=== PATIENT | male | born 1985 | race Hispanic/Latino ===

== ENCOUNTER 2021-05-01 10:01 | Emergency (ER) | payer OTHER, SELFPAY ==
--- NOTE | ~2021-05-01 | XR_ITS ---
EXAMINATION: XR chest 2V DATE: 05/01/2021 10:18 INDICATION: Left sided chest pain and chest tightness. TECHNIQUE: PA and lateral views of the chest were obtained. COMPARISON: Chest radiograph dated 08/14/2018 FINDINGS: The lungs remain clear with no focal airspace opacities, pulmonary edema, pleural effusion or pneumot horax. The cardiomediastinal silhouette is normal. Visualized bones and soft tissues are unremarkable . IMPRESSION: 1. No acute cardiopulmonary disease. Reviewed, dictated and finalized at location A.
[2021-05-01 10:07] VITALS: BP 167/85; PULSE 118; RESP 24; TEMP 37.1; O2SAT 100
--- NOTE | 2021-05-01 10:10 | ECG_ITS ---
Measurements Intervals [place] Rate: 101 P: 56 MT: 167 QRS: 8 QRSD: 94 T: -17 QT: 346 QTc: 448 Interpretive Statements SINUS TACHYCARDIA VENTRICULAR PREMATURE COMPLEX NONSPECIFIC T-WAVE ABNORMALITY- ANTEROLAT/INF LEADS BORDERLINE ECG Electronically Signed On 05-01-2021 17:11:57 CDT by Vikas Andrew D.O.
--- NOTE | 2021-05-01 10:21 | ED.CHESTPAIN ---
HPI - Chest Pain General Chief Complaint: Chest Pain Stated Complaint: chest pain Time Seen by Provider: 05/01/21 10:10 Source: patient Mode of arrival: ambulatory Limitations: no limitations History of Present Illness HPI narrative: This is a 25 year old male that presents to the ER for intermittent chest discomfort noted over the last week. Reports he feels like he is having palpitations. Does report increased stress at work and that he drinks a lot of caffeine. Denies any chest discomfort currently. Denies fever, cough, shortness of breath, or lower extremity edema. Related Data Home Medications Medication Instructions Recorded Confirmed No Home Medications 05/01/21 05/01/21 Allergies Allergy/AdvReac Type Severity Reaction Status Date / Time No Known Allergies Allergy Verified 05/01/21 10:10 Review of Systems Review of Systems: CONSTITUTIONAL: Denies fever CARDIOVASCULAR: Reports chest pain, palpitations. Denies edema. RESPIRATORY: Denies dyspnea. All systems reviewed & are unremarkable except as noted in HPI and below PMFSH Past Medical History Medical History (Updated 05/01/21 @ 13:29 by Gladys Grant PA-C) No active medical problems Social History Social History (Updated 05/01/21 @ 13:28 by Gladys Grant PA-C) Substance use: never Exam Narrative: GENERAL: Well-appearing, well-nourished, and in no acute distress. HEAD: Normocephalic, atraumatic. EYES: EOMI. ENT: Nares clear, no rhinorrhea or epistaxis. Mucous membranes moist. Oropharynx without tonsillar hypertrophy exudate or other lesions. NECK: Supple. No adenopathy or masses. No carotid bruits or JVD CHEST: Clear to auscultation. No respiratory distress. No wheezes rales or rhonchi HEART: Regular rate and rhythm. No murmur heard. Normal peripheral pulses. EXTREMITIES: Normal range of motion. No edema. SKIN: Warm, dry, no rash. NEURO: No focal deficits. Alert and oriented x3. PSYCH: Normal mood and affect Course Vital Signs Vital signs: Vital Signs Temperature 98.7 F 05/01/21 10:07 Pulse Rate 118 H 05/01/21 10:07 Respiratory Rate 24 H 05/01/21 10:07 Blood Pressure 167/85 H 05/01/21 10:07 Pulse Oximetry 100 05/01/21 10:07 Temperature 98.7 F 05/01/21 10:07 Pulse Rate 103 H 05/01/21 12:54 Respiratory Rate 20 05/01/21 12:54 Blood Pressure 136/88 05/01/21 12:54 Pulse Oximetry 99 05/01/21 12:54 MDM - Chest Pain MDM Narrative Medical decision making narrative: Patient presents to the ER for chest discomfort and palpitations over the last week. He is having frequent PVCs noted on registered nurse cardiac telemetry. Does report increased stress at work and a lot of caffeine intake. Denies any current chest discomfort. His vitals are stable. CBC and metabolic panel without concerning findings. Thyroid function is normal. BNP is normal. Chest x-ray without acute cardiopulmonary abnormality. No concerning changes on EKG. Spoke with Dr. Lemus about patient and work-up. Patient will be placed on a Holter monitor and is to follow-up in clinic. He is stable and felt appropriate for further outpatient evaluation. He was given warnings to return to the ER Lab Data Attestation: I reviewed the patient's lab results. Result diagrams: 05/01/21 10:24 05/01/21 10:24 Labs: Lab Results 05/01/21 05/01/21 05/01/21 Range/Units 10:23 10:23 10:24 WBC 6.1 (4.5-10.0) K/mm3 RBC 4.90 (4.6-6.20) M/mm3 Hgb 15.7 (14.0-18.0) g/dL Hct 44.6 (42.0-52.0) % MCV 91.0 (80-100) fl MCH 32.0 (26-34) pg MCHC 35.2 (32-36) g/dl RDW 11.7 (11.5-14.5) % Plt Count 208 (150-375) k/mm3 MPV 9.7 (7.4-10.4) fl Immature Gran % (Auto) 0.3 (0-0.5) % Neut % (Auto) 44.6 L (45.5-73.1) % Lymph % (Auto) 46.7 H (18.3-44.2) % [place] % (Auto) 6.5 (2.6-8.5) % Eos % (Auto) 1.6 (0-4.4) % Baso % (Auto) 0.3 (0.2-1.2) % Lymph # (Auto) 2.87 (0.9-3.2) K/mm
[2021-05-01] MEDS: ASPIRIN 81 MG CHEWABLE TABLET 324 MG PO (10:30)
[2021-05-01 10:31] VITALS: BP 142/87; PULSE 100; PULSE 105; RESP 23; O2SAT 99
[2021-05-01 10:31] LABS: Basophils Percent Auto 0.3 % (0.2-1.2); Eosinophils Absolute Auto 0.1 K/mm3 (0-0.3); Eosinophils Percent Auto 1.6 % (0-4.4); Hematocrit 44.6 % (42.0-52.0); Hemoglobin 15.7 g/dL (14.0-18.0); Immature Granulocyte Absolute 0.02 K/mm3 (0.00-0.031); Immature Granulocyte Percent A 0.3 % (0-0.5); Lymphocytes Absolute Auto 2.87 K/mm3 (0.9-3.2); Lymphocytes Percent Auto 46.7 % (18.3-44.2); Mean Corpuscular HGB Conc 35.2 g/dl (32-36); Mean Platelet Volume 9.7 fl (7.4-10.4); Monocytes Absolute Auto 0.4 K/mm3 (0.1-0.6); Monocytes Percent Auto 6.5 % (2.6-8.5); Neutrophils Absolute Auto 2.7 K/mm3 (1.3-6.7); Neutrophils Percent Auto 44.6 % (45.5-73.1); Platelet Count Result 208 k/mm3 (150-375); Red Cell Distribution Width 11.7 % (11.5-14.5); White Blood Count 6.1 K/mm3 (4.5-10.0)
[2021-05-01 10:40] LABS: Anion Gap 13 mmol/L (8-16); Blood Urea Nitrogen 13 mg/dL (9-20); Calcium 9.5 mg/dL (8.4-10.2); Carbon Dioxide 23 mmol/L (22-30); Chloride 102 mmol/L (98-107); Estimated CRCL calculation 81 ml/min; Estimated Glomerular Filt Rate > 60; Glucose 111 mg/dL (65-110); INR 0.9; Potassium 3.6 mmol/L (3.4-5.0); Prothrombin Time 11.8 Seconds (11.1-14.7); Sodium 138 mmol/L (137-145)
[2021-05-01 10:41] LABS: Partial Thromboplastin Time 25.8 SECONDS (22.3-36.8)
[2021-05-01 10:51] LABS: Troponin I < 0.012 ng/mL (0.000-0.034)
[2021-05-01 10:57] LABS: Magnesium 2.1 mg/dL (1.6-2.3)
[2021-05-01 11:30] VITALS: BP 155/95; PULSE 88; RESP 21; O2SAT 100
[2021-05-01 12:52] LABS: NT Pro B Type Natriuretic Pept 20 pg/mL (5-100)
[2021-05-01 12:54] VITALS: BP 136/88; PULSE 103; RESP 20; O2SAT 99
[2021-05-01 14:15] LABS: Troponin I < 0.012 ng/mL (0.000-0.034)
[2021-05-01 14:24] VITALS: BP 127/83; PULSE 99; RESP 18; O2SAT 97
--- NOTE | 2021-05-04 20:37 | WPDHOLTEREM ---
Holter/Event Monitor Holter/Event Monitor Date of procedure: 05/04/21 Holter/Event Procedure: 48 Hr Holter Monitor Diagnosis: Chest discomfort, PVCs, recent ER visit Indications: Palpitations, PVCs Image/Tracing Quality: Good Finding: The patient was monitored for 48 hours. The underlying rhythm was sinus with a minimum heart rate of 49 beats per minute, average heart rate of 78 beats per minute and maximum heart rate of 138 beats per minute. There 1538 isolated PVCs, 0.7% burden, and only 1 APC. There was no atrial fibrillation, SVT, ventricular tachycardia, heart block or pauses. No diary was submitted. . Conclusion: Unremarkable Holter monitor. Rare PVCs.
== END 2021-05-01 14:36 | disposition home or self-care (01) ==
PROVIDERS: Physician Assistant; Emergency Provider Emergency Medicine; PCP Family Medicine
DX: I49.3 Ventricular premature depolarization (principal)
CPT/HCPCS: 36415; 71046; 80048; 83735; 83880; 84443; 84484; 85025; 85610; 85730; 93005; 93225; 93226; 99284; A9270